=== PATIENT | female | born 1965 | race Asian ===

== ENCOUNTER 2020-11-03 10:44 | Emergency (ER) | payer OTHER ==
[~2020-11-03] VITALS: Ht 157.5 cm; Wt 51.1 kg
[2020-11-03] MEDS ORDERED: METF500T17 PO (11:10)
[2020-11-03] MEDS ORDERED: ATOR-2 PO (11:10)
--- NOTE | 2020-11-03 11:11 | NUR ---
PT W/ ONSET OF EPIGASTRIC PAIN LAST NIGHT AT 1100, PAIN PERSISTED T/O THE NIGHT BUT RESSOLVED AT 1000 THIS MORNING. AT THAT TIME PT HAD SOME DIZZINESS AND NUMBNESS OF HER LIPS. DIZZINESS, CP, AND LIP NUMBNESS ARE ALL RESSOLVED. PT ON ALL MONITORS, VSS AND NAD NOTED. PROVIDER EVAL PENDING. CALL LIGHT W/I REACH
--- NOTE | 2020-11-03 11:45 | NUR ---
DR RODRIGUES AT BEDSIDE, PT ASSESSMENT AND POC DISCUSSED AND QUESTIONS ANSWERED.
[2020-11-03 12:06] LABS: BASOPHILS % (AUTO) 1 % (0-1); EOSINOPHILS % (AUTO) 2 % (1-7); LYMPHOCYTES % (AUTO) 34 % (22-44); MEAN CORPUSCULAR HEMOGLOBIN 30.8 pg (27.0-34.8); MEAN CORPUSCULAR HGB CONC 33.3 g/dL (32.4-35.8); MEAN PLATELET VOLUME 6.4 fL (7.4-10.4); MONOCYTES % (AUTO) 8 % (2-9); NEUTROPHILS % (AUTO) 55 % (42-75); PLATELET COUNT 409 x10^3/uL (130-400); RED CELL DISTRIBUTION WIDTH 13.5 % (9.6-15.2)
[2020-11-03 12:23] LABS: ALBUMIN 4.3 g/dL (3.4-5.0); CALCIUM 9.2 mg/dL (8.5-10.1)
[2020-11-03 12:30] VITALS: BP 143/81
[2020-11-03 12:30] LABS: ALANINE AMINOTRANSFERASE 43 U/L (12-78); ALKALINE PHOSPHATASE 73 U/L (45-117); BILIRUBIN,TOTAL 0.4 mg/dL (0.2-1.0); CREATININE 1.04 mg/dL (0.55-1.02); TOTAL PROTEIN 8.1 g/dL (6.4-8.2); TROPONIN I < 0.015 ng/mL (0.000-0.045)
[2020-11-03 12:38] LABS: ANION GAP 6 mmol/L (5-15); CHLORIDE 109 mmol/L (98-107)
--- NOTE | 2020-11-03 13:00 | NUR ---
US TECH AT BEDSIDE.
--- NOTE | 2020-11-03 13:48 | NUR ---
Patient/Caregiver given discharge instructions and they have confirmed that they understand the instructions. Patient ambulatory with steady gait.
== END 2020-11-03 14:35 | disposition home or self-care (01) ==
LOC: ED 13:38
DX: R10.13 Epigastric pain (principal)
CPT/HCPCS: 36415; 76700; 80053; 83690; 84484; 85025; 93005; 99285